=== PATIENT | male | born 1975 | race Caucasian/White ===

== ENCOUNTER 2018-05-13 16:00 | Emergency (ER) | payer BC | END 2018-05-13 16:30 | disposition left against medical advice (07) | LOC: JD.ED 16:00 | DX: Z53.21 Procedure and treatment not carried out due to patient leaving prior to being seen by health care provider (principal) | CPT/HCPCS: 99283 ==

== ENCOUNTER 2018-05-13 16:44 | Emergency (ER) | payer BC ==
--- NOTE | 2018-05-13 17:54 | EDM.PDOC ---
ED HPI GENERAL MEDICAL PROBLEM - General Chief Complaint: ENT Problem Stated Complaint: DENTAL COMPLAINT Time Seen by Provider: 05/13/18 17:25 Source of Information: Reports: Patient History Limitations: Reports: No Limitations - History of Present Illness INITIAL COMMENTS - FREE TEXT/NARRATIVE: 42-year-old male presents for evaluation and treatment of dental pain. Patient is reporting pain to the right upper molar. Has been going on for about the last 3 days. Reports 16 years ago he had a root canal tooth and now is starting to cause him pain. He reports associated symptoms of a decreased appetite and headache for the last day and half. He states he has been feeling feverish but has not taken his temperature. No chills, nausea or vomiting. No ear pain. Patient attempted to contact his dentist, who resides in [place], he attempted prescribed him clindamycin but due to misunderstanding with the pharmacy the prescription was not sent. Right Tooth/Teeth Pain Score (Numeric/FACES): 7 - Related Data Allergies Allergy/AdvReac Type Severity Reaction Status Date / Time bee pollen Allergy Anaphylactic Verified 05/13/18 17:12 Shock Penicillins Allergy Rash Verified 05/13/18 17:12 Home Meds: Home Meds . [No Known Home Meds] 05/13/18 [History] Past Medical History Musculoskeletal History: Reports: Other (See Below) Other Musculoskeletal History: right hand crush injury - Past Surgical History HEENT Surgical History: Reports: Other (See Below) Other HEENT Surgeries/Procedures: eye surgery Social & Family History - Tobacco Use Smoking Status *Q: Current Every Day Smoker Years of Tobacco use: 13 Packs/Tins Daily: 0.3 - Caffeine Use Caffeine Use: Reports: Coffee, Energy Drinks, Soda - Recreational Drug Use Recreational Drug Use: No ED ROS ENT - Review of Systems Review Of Systems: See Below Constitutional: Reports: Decreased Appetite. Denies: Fever (reprots feeling feverish but no documented fever), Chills HEENT: Reports: Dental Pain (right upper molar). Denies: Ear Pain GI/Abdominal: Denies: Nausea, Vomiting Neurological: Reports: Headache ED EXAM, ENT - Physical Exam Exam: See Below Exam Limited By: No Limitations General Appearance: Alert, WD/WN, No Apparent Distress Eye Exam: Bilateral Eye: Normal Inspection Ears: Normal External Exam, Normal Canal, Hearing Grossly Normal, Normal TMs Mouth/Throat: Normal Inspection, Normal Lips, Normal Oropharynx, Dental Abcess ( small #2), Dental Pain (#2), Dental Tenderness (#2) Neck: Normal Inspection. No: Lymphadenopathy (L), Lymphadenopathy (R) Respiratory/Chest: No Respiratory Distress, Lungs Clear, Normal Breath Sounds Cardiovascular: Normal Peripheral Pulses, Regular Rate, Rhythm, No Murmur Neurological: Alert, Oriented, Normal Cognition Psychiatric: Normal Affect, Normal Mood Skin: Warm, Dry, Normal Color Course - Vital Signs Last Recorded V/S: Last Vital Signs Temp 98.2 F 05/13/18 17:06 Pulse 58 L 05/13/18 17:06 Resp 20 05/13/18 17:06 BP 139/84 05/13/18 17:06 Pulse Ox 98 05/13/18 17:06 - Re-Assessments/Exams Free Text/Narrative Re-Assessment/Exam: 05/13/18 17:46 Patient was searched on the [place] prescription drug registry. search included [place]. 2 prescriptions within the last year. Will start him on clindamycin. He said take Tylenol and Motrin for pain relief. Follow-up with the dentist systems he is able to. Discharge instructions as documented. Departure - Departure Time of Disposition: 17:52 Disposition: Home, Self-Care 01 Condition: Fair Clinical Impression: Pain, dental, Dental abscess - Discharge Information *PRESCRIPTION DRUG MONITORING PROGRAM REVIEWED*: Yes *COPY OF PRESCRIPTION DRUG MONITORING REPORT IN PATIENT VIANEY: No Instructions: Dental Abscess, [id number] Referrals: PCP,None [Primary Care Provider] - Forms: ED Department Discharge Additional Instructions: Rx for clindamycin 300mg PO every 6 hours x 10 days Recommend following up with the dentist as soon as you able to. A list has been provided for you for local dentist in [facility]. Continue to use [id number] Tylenol or Motrin as needed for pain. Do not take more than 4 g of Tylenol from all sources in 1 day. Do not take more than 3200 mg of ibuprofen from all sources in 1 day. may continues Orajel or clove oil as needed. Take the clindamycin as prescribed. 1 tab every 6 hours for 10 days. Take this with food. Also recommend probiotic or yogurt to help reduce side effects. Please return to the ER for symptoms change or worsen.
== END 2018-05-13 18:05 | disposition home or self-care (01) ==
LOC: JD.ED 16:44
DX: K04.7 Periapical abscess without sinus (principal); F17.210 Nicotine dependence, cigarettes, uncomplicated; Z88.0 Allergy status to penicillin; Z91.030 Bee allergy status
CPT/HCPCS: 99283